=== PATIENT | female | born 1955 | race Caucasian/White ===

== ENCOUNTER 2017-01-15 09:24 | Inpatient (IN) | payer OTHER ==
[~2017-01-15] VITALS: Ht 157.5 cm; Wt 65.0 kg
[~2017-01-15 09:24] MED LIST: ASPIRIN325 MG PO; ATORVASTATIN CA40 MG PO; Aspirin PO; Lipitor PO; METHADONE; METHADONE10 MG PO; MOBIC7.5 MG PO; NAPROSYN500 MG PO; OXYCODONE HCL10 MG PO; OXYCODONE HCL15 MG PO; PERCOCET 5/31 TABLET PO; PLAVIX75 MG PO; PREDNISONE20 MG PO; PREMPRO; Plavix PO; TIZANIDINE HCL4 M1 PO; TRAZODONE HCL100 MG PO; VENTOLIN HFA18 GM IH; ZOLOFT50 MG PO; ZYRTEC5 MG PO
[2017-01-15 11:01] LABS: EOSINOPHIL (%) 0.2 % (0-5); HEMATOCRIT 44.2 % (36.0-46.0); IMMATURE GRANULOCYTE (%) 0.7 % (0.0-0.7); IMMATURE GRANULOCYTE COUNT 0.1 K/uL; INSTRUMENT ABS NEUTROPHIL CT 9.5 K/uL; LYMPHOCYTE COUNT 1.2 K/uL (1.0-2.8); MCH 30.6 PG (29.0-34.0); MCHC 32.6 G/DL (30.0-36.0); MCV 93.8 FL (83-99); MEAN PLAT.VOLUME 9.7 uM^3 (9.5-12.4); MONOCYTE (%) 10.7 % (3-12); MONOCYTE COUNT 1.3 K/uL (0-0.8); NEUTROPHIL (%) 78.1 % (45-76); NEUTROPHIL COUNT 9.5 K/uL (1.8-6.4); PLATELET COUNT 313 K/uL (156-360); RBC DIS.WIDTH-CV 14.2 % (11.8-14.6); RBC DIS.WIDTH-SD 49.8 % (39-53); RED BLOOD COUNT 4.71 M/uL (3.80-5.20); WHITE BLOOD COUNT 12.1 K/uL (4.1-10.2)
[2017-01-15 11:09] LABS: CHLORIDE 102 mEq/L (99-109); POTASSIUM 4.6 mEq/L (3.7-5.4); SODIUM 138 mEq/L (136-147)
[2017-01-15 11:11] LABS: GLUCOSE 116 mg/dL (70-99)
[2017-01-15 11:12] LABS: ANION GAP 15 MEQ/L (2-14)
[2017-01-15 11:13] LABS: TOTAL BILIRUBIN 0.7 mg/dL (0.0-1.0)
[2017-01-15 11:15] LABS: ALKALINE PHOSPHATASE 83 IU/L (3-129); GFR ESTIMATE (CALCULATED) > 59 mL/min/
[2017-01-15 11:16] LABS: UREA NITROGEN (BUN) 21 mg/dL (9-23)
[2017-01-15 11:18] LABS: CREATINE KINASE 446 IU/L (1-294); TOTAL CK 446 IU/L (1-294); TROP-I INTERPRETATION NEGATIVE; TROPONIN-I < 0.01 ng/mL (0.0-0.30)
[2017-01-15 11:24] LABS: CK-MB 1.9 ng/mL (0.0-4.9)
[2017-01-15 13:11] LABS: ADD MIUA? YES; BILIRUBIN NEGATIVE; BLOOD MODERATE; COLOR DK YELLOW ((YELLOW)); GLUCOSE (STRIP) NEGATIVE; KETONES 20; LEUKOCYTES MODERATE; NITRITE NEGATIVE; PROTEIN (STRIP) 100; SPECIFIC GRAVITY 1.026 (1.000-1.030)
[2017-01-15 13:24] LABS: BACTERIA 1+ /HPF; EPITHELIAL CELLS 1+ /HPF; MUCUS 4+ /LPF; RED BLOOD CELLS 20-30 /HPF (0-5); UCUL ADDED? NO
[2017-01-15] MEDS ORDERED: MELOXICAM7.5 MG PO ×2 (14:23→14:24)
[2017-01-15] MEDS ORDERED: METHADONE10 MG PO (14:24)
[2017-01-15] MEDS ORDERED: SERTRALINE HCL50 MG PO (14:25)
[2017-01-15] MEDS ORDERED: PROAIR HFA8.5 GM IH (14:25)
[2017-01-15] MEDS ORDERED: PERCOCET 10/1 TABLET PO (14:26)
[2017-01-15] MEDS ORDERED: ATORVASTATIN CA80 MG PO (14:26)
[2017-01-15] MEDS ORDERED: DESYREL100 MG PO (14:26)
[2017-01-15] MEDS ORDERED: CLOPIDOGREL75 MG PO (14:27)
[2017-01-15] MEDS ORDERED: ASPIRIN325 MG PO (14:27)
[2017-01-15] MEDS ORDERED: ADVAIR 250/501 DISK IH (14:28)
[2017-01-15] MEDS ORDERED: TIZANIDINE HCL4 M1 PO (14:28)
[2017-01-15] MEDS ORDERED: SERTRALINE HCL100 MG PO (14:57)
[2017-01-15 15:03] VITALS: BP 138/67
[2017-01-15 18:42] VITALS: BP 99/51
[2017-01-15 23:02] VITALS: BP 116/65
[2017-01-16 03:42] VITALS: BP 95/69
[2017-01-16 06:50] VITALS: BP 103/56
[2017-01-16 07:50] LABS: ANION GAP 9 MEQ/L (2-14); CHLORIDE 108 MEQ/L (99-109); GFR ESTIMATE (CALCULATED) > 59 mL/min/; SAMPLE HEMOLYSIS CHECK 0; SAMPLE ICTERIC CHECK 0; SAMPLE LIPEMIA CHECK 0; SODIUM 142 MEQ/L (136-147); UREA NITROGEN (BUN) 21 mg/dL (9-23)
[2017-01-16 07:56] LABS: GLUCOSE 67 mg/dL (70-99); POTASSIUM 3.4 MEQ/L (3.7-5.4)
[2017-01-16 08:16] LABS: HEMATOCRIT 30.6 % (36.0-46.0); MCH 31.5 PG (29.0-34.0); MCV 95.3 FL (83-99); MEAN PLAT.VOLUME 10.1 uM^3 (9.5-12.4); PLATELET COUNT 269 K/uL (156-360); RBC DIS.WIDTH-CV 14.6 % (11.8-14.6); RBC DIS.WIDTH-SD 51.4 % (39-53)
[2017-01-16 08:24] LABS: RED BLOOD COUNT 3.21 M/uL (3.80-5.20)
[2017-01-16 11:06] VITALS: BP 131/70
[2017-01-16 14:56] VITALS: BP 106/56
[2017-01-16 19:01] VITALS: BP 96/57
[2017-01-16 23:13] VITALS: BP 106/64
[2017-01-17 06:45] VITALS: BP 101/62
[2017-01-17 08:47] LABS: HEMATOCRIT 31.2 % (36.0-46.0); MCH 30.2 PG (29.0-34.0); MCHC 31.4 G/DL (30.0-36.0); MEAN PLAT.VOLUME 9.8 uM^3 (9.5-12.4); PLATELET COUNT 285 K/uL (156-360); RBC DIS.WIDTH-CV 14.7 % (11.8-14.6); RBC DIS.WIDTH-SD 52.2 % (39-53); RED BLOOD COUNT 3.25 M/uL (3.80-5.20); WHITE BLOOD COUNT 5.8 K/uL (4.1-10.2)
[2017-01-17 09:06] LABS: ANION GAP 7 MEQ/L (2-14); CHLORIDE 111 MEQ/L (99-109); CREATINE KINASE 67 IU/L (1-294); GFR ESTIMATE (CALCULATED) > 59 mL/min/; GLUCOSE 68 mg/dL (70-99); MAGNESIUM 1.9 mg/dl (1.3-2.7); POTASSIUM 3.8 MEQ/L (3.7-5.4); SAMPLE HEMOLYSIS CHECK 0; SAMPLE ICTERIC CHECK 0; SAMPLE LIPEMIA CHECK 0; SODIUM 142 MEQ/L (136-147); UREA NITROGEN (BUN) 12 mg/dL (9-23)
[2017-01-17 10:50] VITALS: BP 111/56
[2017-01-17 15:00] VITALS: BP 96/53
[2017-01-17 19:38] VITALS: BP 127/66
[2017-01-17 22:44] VITALS: BP 146/67
[2017-01-18 03:51] VITALS: BP 141/62
[2017-01-18 08:02] VITALS: BP 110/57
[2017-01-18 11:48] VITALS: BP 132/68
[2017-01-18] MEDS ORDERED: NICOTINE PATCH1 EAC2 TD (13:15)
[2017-01-18] MEDS ORDERED: CEFDINIR300 MG PO (13:15)
== END 2017-01-18 16:10 | disposition home health service (06) | DRG 602 ==
LOC: EME → EDBD 09:24 → EME 09:24 → 5EAST 12:28 → EDOF 12:28 → 5EAST 12:28
PROVIDERS: Emergency Medicine; Hospitalist; Internal Medicine
DX: L03.317 Cellulitis of buttock (principal); J96.01 Acute respiratory failure with hypoxia; G93.40 Encephalopathy, unspecified; L89.151 Pressure ulcer of sacral region, stage 1; M62.82 Rhabdomyolysis; I95.9 Hypotension, unspecified; N39.0 Urinary tract infection, site not specified; M17.11 Unilateral primary osteoarthritis, right knee; E87.6 Hypokalemia; J44.9 Chronic obstructive pulmonary disease, unspecified; F17.210 Nicotine dependence, cigarettes, uncomplicated; R52 Pain, unspecified; M54.9 Dorsalgia, unspecified; Z85.841 Personal history of malignant neoplasm of brain; Z85.118 Personal history of other malignant neoplasm of bronchus and lung; M79.7 Fibromyalgia; I69.351 Hemiplegia and hemiparesis following cerebral infarction affecting right dominant side
CPT/HCPCS: 71010; 73564; 73630; 73700; 80048; 80053; 80202; 81003; 82550; 82553; 83735; 84484; 85025; 85027; 87040; 87086; 93005; 94640 76; 94799; 99202; 99281; 99285; J0696; J1650; J1885; J2310; J3370; J7030; J7050; J7644